=== PATIENT | male | born 1975 | race Caucasian/White ===

== ENCOUNTER 2022-01-29 22:42 | Emergency (ER) | payer BC, SELFPAY ==
[2022-01-29 22:44] VITALS: BP 153/90; PULSE 72; RESP 16; TEMP 38.1; O2SAT 94
--- NOTE | 2022-01-29 23:06 | ED_ITS ---
HPI - General Adult General: Chief complaint: General Medical Stated complaint: SOB/cough/headache Time Seen by Provider: 01/29/22 23:05 History of Present Illness: 46-year-old male patient started feeling ill this evening. Patient started with a high fever of up to 100.5. Patient also had persistent coughing. Patient appears unwell but not toxic. Patient reports having COVID 2 times already. Patient denies any chronic medical problems. Patient reports no nausea vomiting or diarrhea. Patient does have a headache and sinus congestion. Associated symptoms: Reports dyspnea; Deny chest pain, nausea, rash or vomiting Review of Systems General: Reports: 10 or more systems reviewed and unremarkable except in HPI and below Const: Reports: fever(s) ENMT: Reports: nasal congestion Card: Denies: chest pain Resp: Reports: dyspnea and non-productive cough GI: Denies: nausea, vomiting or diarrhea Skin/Breast: Denies: rash Physical Exam Const: COMMON NORMALS: alert HENMT: NOSE: Nasal discharge present MOUTH: Normal oral and palatal mucosa present THROAT: posterior oropharynx normal Eye: GENERAL EYE: appearance normal, both eyes and all related structures Neck/C-Spine: COMMON NORMALS: full ROM and no meningeal signs Resp: COMMON NORMALS: normal respiratory effort AUSCULTATION: wheezes Cardio: COMMON NORMALS: regular rate RATE: regular rate GI: PALPATION: No Tenderness to palpation present (GI) Extremity: COMMON NORMALS: normal to inspection Neuro: SENSORIUM/ORIENTATION: Yes alert MENINGEAL SIGNS: Yes no meningeal signs Skin: COMMON NORMALS: no rashes or lesions noted GENERAL SKIN EXAM: no rashes or lesions noted Course Vital Signs: Vital signs: Vital Signs Temperature 100.8 F H 01/29/22 23:38 Pulse Rate 81 01/29/22 23:50 Respiratory Rate 20 H 01/29/22 23:50 Blood Pressure 135/75 01/29/22 23:38 Pulse Oximetry 100 01/29/22 23:[address] [facility] - General Adult Medical Decision Making Patient comes in tonight with fever and cough and nasal congestion starting today. On exam patient appears mildly unwell but not toxic. Lungs are decreased with some mild wheezing. Heart rates regular. No edema is noted in the extremities. Patient does have a temperature of 100.5. Differential diagnosis includes upper respiratory infection, bronchitis, asthma, influenza, COVID-19. Chest x-ray showed no acute findings, CBC was unremarkable, CMP was unremarkable. Influenza testing was negative. COVID-19 test was outstanding. Patient was treated with dexamethasone and a nebulizer treatment with improvement in respirations and coughing. We will treat patient for acute bronchitis with doxycycline, albuterol, and prednisone. Patient will call back regarding COVID-19 testing. I encourage fluids rest and follow-up with primary care in 2 to 3 days for recheck. Return to ER for worsening symptoms. Patient and family both reported understanding. Lab Data : 01/29/22 23:33 01/29/22 23:33 Radiology Impressions Chest X-Ray 01/29/22 23:07 IMPRESSION: No acute findings. Laboratory Results WBC 8.2 10^3/uL (4.0-10.0) 01/29/22: RBC 4.73 10^6/uL (4.1-5.3) 01/29/22: Hgb 14.3 g/dL (11.7-16.6) 01/29/22: Hct 41.8 % (42.0-52.0) L 01/29/22 23: MCV 88.4 fl (80-94) 01/29/22 23: MCH 30.2 pg (28.0-34.0) 01/29/22 23: MCHC 34.2 g/dL (30.0-36.0) 01/29/22 23: RDW 13.8 % (12.1-15.1) 01/29/22: Plt Count 180 10^3/cmm (130-400) 01/29/22: MPV 12.6 fL (7.4-10.4) H 01/29/22 23: Neut % (Auto) 85.2 % 01/29/22 23: Lymph % (Auto) 9.7 % 01/29/22 23: [place] % (Auto) 2.5 % 01/29/22 23: Eos % (Auto) 1.8 % 01/29/22: Baso % (Auto) 0.6 % 01/29/22: Neut # (Auto) 6.94 10^3/uL (1.8-7.7) 01/29/22: Lymph # (Auto) 0.8 10^3/uL (0.8-4.8) 01/29/22 23:33 [place] # (Auto) 0.2 10^3/uL (0.2-0.9) 01/29/22 23:33 Eos # (Auto) 0.2 10^3/uL (0.0-0.8) 01/29/22 23:33 Baso # (Auto) 0.1 10^3/uL (0.0-0.1) 01/29/22 23:33 Nucleated RBC % (auto) 0 % 01/29/22 23:33 Nucleated RBCs # 0.0 /100WBC 01/29/22 23:33 Sodium 141 mmol/L (136-145) 01/29/22 23: Potassium 4.0 mmol/L (3.5-5.1) 01/29/22 23:33 Chloride 105 mmol/L (98-107) 01/29/22 23: Carbon Dioxide 22 mmol/L (22-29) 01/29/22 23:33 Anion Gap 18.0 (5-19) 01/29/22 23:33 BUN 23 mg/dL (6-20) H 01/29/22 23:33 Creatinine 1.2 mg/dL (0.7-1.2) 01/29/22 23:33 GFR Calculation 64.9 mL/min (90-130) L 01/29/22 23:33 Glucose 96 mg/dL (65-115) 01/29/22 23:33 Calculated Osmolality 296 mOsm/kg (285-295) H 01/29/22 23:33 Calcium 9.8 mg/dL (8.5-10.5) 01/29/22 23:33 Total Bilirubin 0.2 mg/dL (0.15-1.2) 01/29/22 23:33 AST 27 U/L (0-40) 01/29/22 23:33 ALT 31 U/L (0-41) 01/29/22 23:33 Alkaline Phosphatase 74 IU/L (40-130) 01/29/22 23:33 Total Protein 7.3 g/dL (6.6-8.7) 01/29/22 23:33 Albumin 4.9 g/dL (3.5-5.2) 01/29/22 23:33 Globulin 2.4 g/dL (1.3-4.6) 01/29/22 23:33 Urine Color Cancelled 01/29/22 23:24 Urine Appearance Cancelled 01/29/22 23:24 Urine pH Cancelled 01/29/22 23:24 Ur Specific [place] Cancelled 01/29/22 23:24 Urine Protein Cancelled 01/29/22 23:24 Urine Glucose (UA) Cancelled 01/29/22 23:24 Urine Ketones Cancelled 01/29/22 23:24 Urine Blood Cancelled 01/29/22 23:24 Urine Nitrate Cancelled 01/29/22 23:24 Urine Bilirubin Cancelled 01/29/22 23:24 Prot Sulfosalicylic Acd Cancelled 01/29/22 23:24 Urine Urobilinogen Cancelled 01/29/22 23:24 Ur Leukocyte Esterase Cancelled 01/29/22 23:24 Urine RBC Cancelled 01/29/22 23:24 Urine WBC Cancelled 01/29/22 23:24 Ur Squamous Epith Cells Cancelled 01/29/22 23:24 Ur Transition Epith Cell Cancelled 01/29/22 23:24 Ur Renal Epithelial Cell Cancelled 01/29/22 23:24 Calcium Oxalate Crystal Cancelled 01/29/22 23:24 Uric Acid Crystals Cancelled 01/29/22 23:24 Triple Phos Crystals Cancelled 01/29/22 23:24 Other Crystals Cancelled 01/29/22 23:24 Amorphous Sediment Cancelled 01/29/22 23:24 Urine Bacteria Cancelled 01/29/22 23:24 Hyaline Casts Cancelled 01/29/22 23:24 Fine Granular Casts Cancelled 01/29/22 23:24 Coarse Granular Casts Cancelled 01/29/22 23:24 RBC Casts Cancelled 01/29/22 23:24 Other Casts Cancelled 01/29/22 23:24 Urine Mucus Cancelled 01/29/22 23:24 Urine Trichomonas Cancelled 01/29/22 23:24 Urine Yeast Cancelled 01/29/22 23:24 Urine Sperm Cancelled 01/29/22 23:24 Ur Oval Fat Bodies Cancelled 01/29/22 23:24 Influenza Type A Ag Negative (Negative) 01/29/22 23:24 Influenza Type B Ag Negative (Negative) 01/29/22 23:24 Discharge Plan Discharge Patient Disposition: Home Clinical Impression: Acute bronchitis Qualifiers: Bronchitis organism: unspecified organism Qualified Code(s): J20.9 - Acute bronchitis, unspecified Condition: Stable Prescriptions: New doxycycline monohydrate 100 mg capsule 100 mg PO BID 7 Days Qty: 14 0RF prednisone 20 mg tablet 20 mg PO BID 5 Days Qty: 10 0RF albuterol sulfate 90 mcg/actuation HFA aerosol inhaler 2 inh inhalation Q4H PRN (Reason: shortness of breath or wheezing) Qty: 8.5 0RF Discharge Orders: Discharge ED (Routine); Ordered 01/30/22 Ordered By: Juan Piña Discharge Diet: Usual diet Discharge Activity: Increase activity as tolerated Patient Instructions: Acute Bronchitis (ED) Activity Restrictions/Additional Instructions: Encourage plenty of fluids. Give acetaminophen and ibuprofen for pain and fever. Make sure to drink plenty of water. Use albuterol inhaler 2 puffs every 4 hours as needed for shortness of breath or coughing. Take antibiotic doxycycline twice a day for 7 days. Use prednisone 20 mg twice a day for 5 days. Increase activity as tolerated. Follow-up with primary care for further instruction. Call back to the ER in at least 2 hours to find final results for COVID test. Stand Alone Forms: Work/School Release Coding Level of Care Code ED Churn Operator for Anupam Hoskins
--- NOTE | 2022-01-29 23:07 | XRR_ITS ---
PROCEDURE INFORMATION: Exam: XR Chest Exam date and time: 01/29/2022 11:24 PM Age: 46 years old Clinical indication: Cough and fever; Additional info: Fever cough TECHNIQUE: Imaging protocol: XR of the chest. Views: 1 view. COMPARISON: No relevant prior studies available. FINDINGS: Lungs: Unremarkable. No consolidation. Pleural spaces: Unremarkable. No pleural effusion. No pneumothorax. Heart/Mediastinum: Unremarkable. No cardiomegaly. Bones/joints: Unremarkable. XR/XR chest 1V portable [id number] IMPRESSION: No acute findings.
[2022-01-29 23:38] VITALS: BP 135/75; PULSE 75; RESP 22; TEMP 38.2; O2SAT 96
[2022-01-29] MEDS: ipratropium-albuterol 3 mL Neb INHALATION (23:44)
[2022-01-29 23:45] VITALS: PULSE 73; RESP 20; O2SAT 98
[2022-01-29] MEDS: sodium chloride 0.9% 1,000 ML 999 ML IV (23:47)
[2022-01-29] MEDS: dexamethasone 10 mg/mL INJ IVP (23:47)
[2022-01-29 23:48] LABS: Basophils # 0.1 10^3/uL (0.0-0.1); Basophils % 0.6 %; Eosinophils # 0.2 10^3/uL (0.0-0.8); Eosinophils % 1.8 %; Hematocrit 41.8 % (42.0-52.0); Hemoglobin 14.3 g/dL (11.7-16.6); Lymphocytes # 0.8 10^3/uL (0.8-4.8); Lymphocytes % 9.7 %; Mean Corpuscular HGB Conc 34.2 g/dL (30.0-36.0); Mean Corpuscular Hemoglobin 30.2 pg (28.0-34.0); Mean Corpuscular Volume 88.4 fl (80-94); Mean Platelet Volume 12.6 fL (7.4-10.4); Monocytes # 0.2 10^3/uL (0.2-0.9); Monocytes % 2.5 %; Neutrophils # 6.94 10^3/uL (1.8-7.7); Neutrophils % 85.2 %; Nucleated Red Blood Cells % 0 %; Platelet Count 180 10^3/cmm (130-400); Red Blood Count 4.73 10^6/uL (4.1-5.3); Red Cell Distribution Width 13.8 % (12.1-15.1); White Blood Count 8.2 10^3/uL (4.0-10.0)
[2022-01-29 23:50] VITALS: PULSE 81; RESP 20; O2SAT 100
[2022-01-30 00:06] LABS: Alanine Aminotransferase 31 U/L (0-41); Albumin Level 4.9 g/dL (3.5-5.2); Alkaline Phosphatase 74 IU/L (40-130); Aspartate Amino Transferase 27 U/L (0-40); Blood Urea Nitrogen 23 mg/dL (6-20); Calcium 9.8 mg/dL (8.5-10.5); Carbon Dioxide 22 mmol/L (22-29); Chloride 105 mmol/L (98-107); Globulin 2.4 g/dL (1.3-4.6); Glomerular Filtration Rate 64.9 mL/min (90-130); Glucose 96 mg/dL (65-115); Osmolality Calculated 296 mOsm/kg (285-295); Sodium 141 mmol/L (136-145); Total Bilirubin 0.2 mg/dL (0.15-1.2); Total Protein 7.3 g/dL (6.6-8.7)
[2022-01-30 00:34] LABS: Influenza A by IFA Negative (Negative); Influenza B by IFA Negative (Negative)
[2022-01-30] MEDS: doxycycline 100 mg Tablet PO (01:07)
[2022-01-30] MEDS: acetaminophen 500 mg Tablet 1000 MG PO (01:07)
[2022-01-30] MEDS: LORazepam 2 mg/mL INJ 1 mL 1 MG IVP (01:08)
[2022-01-30] MEDS: ketorolac 30 mg/mL INJ 15 MG IVP (01:08)
[2022-01-30] MEDS: albuterol 8 gm MDI 2 PUFF INHALATION (01:29)
[2022-01-30 01:31] VITALS: BP 112/63; PULSE 77; RESP 20; O2SAT 93
[2022-01-30 01:41] LABS: Adenovirus Not Detected (NOT DETECT); Chlamydia Pneumoniae Not Detected (NOT DETECT); Coronavirus 229E,HKU1,NL63,OC4 Not Detected (NOT DETECT); Human Metapneumovirus Not Detected (NOT DETECT); Human Rhinovirus/Enterovirus Not Detected (NOT DETECT); Influenza A Not Detected (NOT DETECT); Influenza A H1 Not Detected (NOT DETECT); Influenza A H1-2009 Not Detected (NOT DETECT); Influenza A H3 Not Detected (NOT DETECT); Influenza B Not Detected (NOT DETECT); Mycoplasma Pneumoniae Not Detected (NOT DETECT); Parainfluenza Virus Type 1 Not Detected (NOT DETECT); Parainfluenza Virus Type 2 Not Detected (NOT DETECT); Parainfluenza Virus Type 3 Detected (NOT DETECT); Parainfluenza Virus Type 4 Not Detected (NOT DETECT); Respiratory Syncytial Virus A Not Detected (NOT DETECT); Respiratory Syncytial Virus B Not Detected (NOT DETECT); SARS-COV-2 Not Detected (NOT DETECT)
[2022-01-30 02:02] LABS: Parainfluenza Virus Type 1 Not Detected (NOT DETECT); Parainfluenza Virus Type 2 Not Detected (NOT DETECT); Parainfluenza Virus Type 3 Detected (NOT DETECT); Parainfluenza Virus Type 4 Not Detected (NOT DETECT); Results from Genmark
== END 2022-01-30 01:27 | disposition home or self-care (01) ==
PROVIDERS: Emergency Provider Nurse Practitioner Family
DX: J20.9 Acute bronchitis, unspecified (principal)
CPT/HCPCS: 71045; 80053; 81003; 85025; 87631; 87635; 87804; 94640; 96361; 96374; 96375; 99284; J1100; J1885; J2060; J3535; J7030

== ENCOUNTER 2022-09-28 12:46 | Outpatient (CLI) | payer BC, SELFPAY ==
--- NOTE | 2022-09-28 12:58 | MR_ITS ---
WS: [id number] MRI BRAIN WITH AND WITHOUT CONTRAST HISTORY: L EYE AMAUROSIS FUGAX COMPARISON: None available. TECHNIQUE: Multiplanar imaging performed through the brain with MultiHance 17 ml's IV. No acute infarcts are seen. Martinez-white matter differentiation is well preserved. No susceptibility artifacts or prior lacunar infarcts. Ventricles and extra-axial spaces are normal. Clivus and pituitary gland are normal. Visualized posterior fossa and brainstem are also normal. Postcontrast images are negative for masses or vascular malformations. Dural venous sinuses are normal. Paranasal sinuses: Well aerated with no significant disease. Mastoid air cells: Normal. Calvarium and scalp: Normal. MR/MR head wo/w con [id number] IMPRESSION: 1. Normal MRI brain with contrast. No infarcts. 2. Visualized [place] of [place] and carotid arteries are negative. No signal ab normality is identified. 3. For additional evaluation consider carotid ultrasound or evaluation of the heart for embolic source.
[2022-09-28] MEDS: gadobenate dimeglumine 20 mL vial IV (14:52)
== END 2022-09-28 12:47 | disposition home or self-care (01) ==
PROVIDERS: Visit Provider Family Medicine
DX: G45.3 Amaurosis fugax (principal)
CPT/HCPCS: 70553; A9577

== ENCOUNTER 2022-10-11 13:31 | Outpatient (CLI) | payer BC, SELFPAY ==
--- NOTE | 2022-10-11 13:46 | USCV_ITS ---
Tyrone Hester Age: 46 Gender: M : 1975 Exam Date: 10/11/2022 14:17 Ordering Phys: Curry Ortiz MD Technologist: GEETA Exam Location: [facility] [place] Indication: Amaurosis Fugax in Lt eye Risk Factors: Previous Vascular Surgery: Right Brachial BP: / Left Brachial BP: / Right Left Velocity (cm/s) Spectral Plaque Velocity (cm/s) Spectral Plaque Syst/Diast Broadening Syst/Diast Broadening 73.00/ 18.40 Prox CCA 87.20 / 30.80 63.80/ 19.10 Mid CCA 95.70 / 34.20 84.10/ 32.90 Distal CCA 93.70 / 33.10 109.40/35.90 Prox ICA 81.20 / 36.70 77.80/ 29.10 Mid ICA 80.40 / 32.80 64.10/ 29.10 Distal ICA 74.30 / 31.60 84.10 ECA 65.80 1.30 ICA/CCA 0.85 Vertebral 29.50/ 12.00 cm/s 38.10/ 15.10 cm/s Subclavian 107.7 142.0 0 0 CONCLUSIONS Right ICA stenosis <50%. Left ICA stenosis <50%. Normal antegrade Doppler flow noted in the right vertebral artery. Normal antegrade Doppler flow noted in the left vertebral artery. Ritesh Blood MD (Electronically Signed) Final Date: 12 October 2022 11:29 S
--- NOTE | 2022-10-11 13:46 | USCV_ITS ---
Tyrone Hester Age: 46 Gender: M : 1975 Exam Date: 10/11/2022 14:42 Ordering Phys: Curry Ortiz MD Technologist: [place] [facility] [place]: syncope BP: 120 / 70 HR: 50 Rhythm: Sinus Technical Quality: MEASUREMENTS (Male / Female) Normal Values 2D ECHO LV Diastolic Diameter PLAX 5.2 cm 4.2 - 5.9 / 3.9 - 5.3 cm LV Systolic Diameter PLAX 3.0 cm IVS Diastolic Thickness 1.3 cm 0.6 - 1.0 / 0.6 - 0.9 cm IVS Systolic Thickness 1.5 cm LVPW Diastolic Thickness 1.2 cm 0.6 - 1.0 / 0.6 - 0.9 cm LVPW Systolic Thickness 1.6 cm LVOT Diameter 2.1 cm LV Ejection Fraction 2D Teich 72.2 % LV Ejection Fraction MOD 2C 74.5 % LV Ejection Fraction 2C AL 73.6 % LA Diameter 3.9 cm LA Width 6.2 cm M-MODE Aortic Annulus Diameter 3.9 cm LA Ao Ratio MM 1.1 MV E Point Septal Separation 0.5 cm DOPPLER AV Peak Velocity 160.0 cm/s LVOT Peak Velocity 107.0 cm/s AV Area Cont Eq vti 2.4 cm squared AV Area Cont Eq pk 2.4 cm squared MV Area PHT 5.0 cm squared Mitral E to A Ratio 1.5 MV E' Velocity 43.0 cm/s Mitral E to MV E' Ratio 6.9 Mitral E to LV E' Lateral Ratio 6.7 Mitral E to LV E' Septal Ratio 7.2 TR Peak Velocity 405.0 cm/s TR Peak Gradient 65.6 mmHg TV Peak E Velocity 238.0 cm/s Right Atrial Pressure 3.0 mmHg Pulmonary Artery Systolic Pressu 68.6 mmHg FINDINGS Left Ventricle Normal left ventricular size and systolic function, EF 72 %. No regional wall motion abnormalities. Right Ventricle The right ventricle is normal in size and function. Right Atrium The right atrium is normal in size. Left Atrium The left atrium is normal in size. Mitral Valve Trace mitral valve regurgitation. Aortic Valve Appears to be tricuspid with no abnormalities noted Tricuspid Valve Trace tricuspid valve regurgitation. Pulmonic Valve No gross abnormalities noted Pericardium Normal pericardium without effusion. Aorta Normal ascending aorta dimension. IVC Inferior vena cava not visualized. CONCLUSIONS Normal left ventricular size and systolic function, EF 72 %. No regional wall motion abnormalities. Normal cardiac chamber sizes. No significant valvular abnormalities Trace of mitral and tricuspid regurgitation There is no pericardial effusion. There are no intracardiac masses. No similar previous studies are available for comparison Dr Alejandro Edwards MD FACC (Electronically Signed) Final Date: 12 October 2022 16:54 S
== END 2022-10-11 13:32 | disposition home or self-care (01) ==
LOC: RAD 13:35
PROVIDERS: Visit Provider Family Medicine
DX: G45.3 Amaurosis fugax (principal); R55 Syncope and collapse; I08.1 Rheumatic disorders of both mitral and tricuspid valves
CPT/HCPCS: 93306; 93880

== ENCOUNTER → 2023-09-21 14:28 | Outpatient (BNVA) | payer BC, SELFPAY | PROVIDERS: PCP Family Medicine; Visit Provider Registered Nurse Neonatal Intensive Care | DX: Z20.828 Contact with and (suspected) exposure to other viral communicable diseases (principal) | CPT/HCPCS: 87400 ==